=== PATIENT | female | born 1940 | race Caucasian/White ===

== ENCOUNTER → 2016-12-29 | Outpatient (CLI) | payer OTHER ==
[~2016-12-29] MED LIST: ASPI325T32 PO; ATEN-51 PO; HYDR-3498 PO; OMEP20CA16 PO; TRAM50TA2 PO
--- NOTE | 2016-12-29 11:35 | RADRPT ---
PROCEDURE: XR pelvis / bilateral hips. CLINICAL INDICATION: Hip pain TECHNIQUE: AP pelvis/AP and lateral views of the right left hips available for review. 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 There is normal mineralization, architecture and alignment. There is no evidence of loosening of th e prosthesis. No fractures, dislocation or osseous lesions are identified. The joints are unremark able. There are normal soft tissues. IMPRESSION: Bilateral total hip replacements. Otherwise unremarkable examination. RPTAT: [facility] .Feliciano Abreu MD, MD Date Time Electronically viewed and signed by .Feliciano Abreu MD, on 12/29/2016 11:35 .B/
== END | disposition home or self-care (01) ==
LOC: HKI 11:22
PROVIDERS: ATTEND Orthopaedic Surgery
DX: Z47.1 Aftercare following joint replacement surgery (principal); Z96.643 Presence of artificial hip joint, bilateral
CPT/HCPCS: 73523; G0463

== ENCOUNTER → 2017-06-08 | Outpatient (CLI) | payer OTHER ==
--- NOTE | 2017-06-08 17:19 | RADRPT ---
PROCEDURE: XR pelvis and bilateral hips. CLINICAL INDICATION: pain TECHNIQUE: AP pelvis, frog lateral views of the bilateral hips were performed. COMPARISON: Plain radiographs of the pelvis and bilateral hips from 12/29/2016 FINDINGS: There is normal mineralization and alignment. No acute fracture or osseous lesion is identified. Bilateral total hip prostheses are again noted in near anatomic alignment without evidence of hardwa re loosening. The soft tissues are unremarkable. RPTAT: AA IMPRESSION: Redemonstration of bilateral hip prostheses in near anatomic alignment without evidence of hardware loosening. Physician Ba Date Time Electronically viewed and signed by Physician aB on 06/08/2017 17:19 RA/
== END | disposition home or self-care (01) ==
LOC: HKI 08:17
PROVIDERS: ATTEND Orthopaedic Surgery
DX: Z47.89 Encounter for other orthopedic aftercare (principal); Z96.643 Presence of artificial hip joint, bilateral
CPT/HCPCS: 73523; G0463